=== PATIENT | female | born 1990 | race African-American/Black ===

== ENCOUNTER 2017-06-30 12:24 | Emergency (ER) | payer SELFPAY ==
--- NOTE | 2017-06-30 12:56 | RAD ---
LEFT SHOULDER THREE VIEWS: HISTORY: Left shoulder pain after injury three weeks ago. FINDINGS: There are no signs of fracture or dislocation. There is an area of lucency in the glenoid neck regio n. I am not certain if this is just projectional or if it is related to a true bone abnormality in t his region. I would recommend an axillary lateral view for assessment of this finding. IMPRESSION: Area of lucency, which is in the glenoid neck region. Not certain if this is a true bony abnormality or just a projectional finding. I would recommend an axillary lateral view if the shoulder for asse ssment. POS: [facility]
--- NOTE | 2017-06-30 15:42 | RAD ---
LEFT SHOULDER 3 VIEWS: HISTORY: Possible lucent lesion in the glenoid. COMPARISON: None. CORRELATION: Left shoulder radiograph series 06/30/17 at 12:33 p.m. FINDINGS: There is evidence of a lucent lesion with sclerotic borders in the glenoid neck. The lesion measures approximately 2.8 cm. Better interrogation with MRI should be performed on a nonemergent basis. IMPRESSION: Lucent lesion with sclerotic margin. Nonemergent MRI. POS: [facility]
== END 2017-06-30 16:40 | disposition home or self-care (01) ==
LOC: ERS 12:24
DX: M25.512 Pain in left shoulder (principal)

== ENCOUNTER 2018-11-06 16:23 | Inpatient (IN) | payer SELFPAY ==
[2018-11-06 17:24] LABS: Hemoglobin 7.7 g/dL (12.0-16.0); Mean Corpuscular HGB CONC 30.5 g/dL (32.0-36.0); Mean Corpuscular Hemoglobin 21.3 pg (27.0-31.0); Mean Corpuscular Volume 69.9 fL (78.0-98.0); Mean Platelet Volume 7.3 fL (7.4-10.4); Platelet Count 471 thou/uL (130-400); RBC Distribution Width 16.7 % (11.5-14.5); Red Blood Cell (RBC) Count 3.61 mill/uL (4.20-5.40); White Blood Cell (WBC) Count 7.3 thou/uL (4.8-10.8)
[2018-11-06 17:26] LABS: BHCG - Serum Negative (NEGATIVE); Pregs Control Background? CLEAR/WHITE (CLR/WHITE); Pregs Control Bar Appear? YES (CONTROL BAR)
[2018-11-06 17:38] LABS: Anion Gap 13 mmol/L (10-20); BUN (Urea Nitrogen) 6 mg/dL (7.0-18.7); Calc. Creatinine Clearance 0 mL/min (70-130); Calcium 9.5 mg/dL (7.8-10.44); Carbon Dioxide 23 mmol/L (22-29); Chloride 105 mmol/L (98-107); Estimated GFR-MDRD Greater than 90; Glucose 80 mg/dL (70-105); Potassium 3.1 mmol/L (3.5-5.1); Sodium 138 mmol/L (136-145)
[2018-11-06 17:48] LABS: #Eosinphils 0.1 thou/uL (0.0-0.7); #Lymphocytes 0.8 thou/uL (1.20-3.40); #Monocytes 0.4 thou/uL (0.11-0.59); #Neutrophils 6.1 thou/uL (1.40-6.50); %Basophils 0.1 % (0.0-1.0); %Eosinophils 1.5 % (0.0-10.0); %Lymphocytes 10.2 % (21.0-51.0); %Monocytes 5.3 % (0.0-10.0); %Neutrophils 82.9 % (42.0-75.0); Anisocytosis SLIGHT = 6-15 cells (100X) (0-5/hpf); Elliptocytes SLIGHT = 2-5 cells (100X) (0-1/hpf); Hypochromia SLIGHT = 6-15 cells (100X) (0-5/hpf); MDiff Complete? YES; Microcytosis SLIGHT = 6-15 cells (100X) (0-5/hpf); Platelet Morphology Comment Appears Increased
--- NOTE | 2018-11-06 19:31 | RAD ---
XR Chest 1 View Portable History: Syncope Comparison: None. Findings: Heart size is mildly enlarged. No pneumothorax. No effusion. No acute osseous abnormality. Impression: Mild cardiomegaly, abnormal for age. This may be sequelae of left to right shunt or peric ardial effusion.
[2018-11-06] MEDS ORDERED: Potassium Chloride 20 MEQ TAB ONE (22:23)
[2018-11-07 00:36] LABS: Troponin I Less than 0.010 ng/mL (< 0.028)
[2018-11-07 00:58] VITALS: BMI 33.8
[2018-11-07] MEDS ORDERED: Vancomycin HCl 1 GM in Premix Bag 1 BAG IVPB SCH (01:30)
[2018-11-07 01:52] LABS: Bilirubin Negative (Negative); Blood, Urine Negative (Negative); Clarity CLEAR (Clear); Glucose, Urine (Dipstick) Negative (Negative); Leukocyte Negative (Negative); Nitrite Negative (Negative); Protein, Urine (Dipstick) 30 mg/dL (Neg-Trace); Specific Gravity, Urine 1.024 (1.002-1.036); Urobilinogen 0.2 mg/dL (0.2-1.0)
[2018-11-07 01:55] LABS: Bacteria/HPF Rare-Few HPF (None Seen); Hyaline Casts/LPF 4-6 HYALINE CAST LPF (0-3 Hyaline); Pathc Cast-AUWi Flag 1.08 (0-2.49); WBC/HPF 0-3 HPF (0-3)
[2018-11-07] MEDS ORDERED: Ondansetron PF 4 MG/2 ML Vial IVP PRN (01:58)
[2018-11-07] MEDS ORDERED: hydrALAZINE 20 MG/ML VIAL SLOW IVP PRN (01:58)
[2018-11-07] MEDS ORDERED: Vancomycin HCl 1.5 GM in Sodium Chloride 0.9% 250 ML 300 ML IVPB SCH ×2 (02:00→04:00)
[2018-11-07] MEDS: Acetaminophen 500 MG TAB PO PRN ×2 (02:08→14:36)
[2018-11-07 02:09] LABS: Urine Culture Reflex No No
[2018-11-07] MEDS ORDERED: Potassium Chloride 20 MEQ TAB PO SCH (02:30)
[2018-11-07 04:05] LABS: #Lymphocytes 0.9 thou/uL (1.20-3.40); #Monocytes 0.4 thou/uL (0.11-0.59); #Neutrophils 5.8 thou/uL (1.40-6.50); %Basophils 0.3 % (0.0-1.0); %Eosinophils 0.5 % (0.0-10.0); %Lymphocytes 12.7 % (21.0-51.0); %Monocytes 5.6 % (0.0-10.0); Mean Corpuscular HGB CONC 31.3 g/dL (32.0-36.0); Mean Corpuscular Hemoglobin 21.8 pg (27.0-31.0); Mean Corpuscular Volume 69.5 fL (78.0-98.0); Mean Platelet Volume 7.8 fL (7.4-10.4); Platelet Count 423 thou/uL (130-400); RBC Distribution Width 16.7 % (11.5-14.5); Red Blood Cell (RBC) Count 3.22 mill/uL (4.20-5.40); White Blood Cell (WBC) Count 7.2 thou/uL (4.8-10.8)
[2018-11-07 04:09] LABS: Anion Gap 12 mmol/L (10-20); BUN (Urea Nitrogen) 6 mg/dL (7.0-18.7); Calc. Creatinine Clearance 174 mL/min (70-130); Calcium 9.3 mg/dL (7.8-10.44); Carbon Dioxide 23 mmol/L (22-29); Chloride 106 mmol/L (98-107); Estimated GFR-MDRD Greater than 90; Glucose 94 mg/dL (70-105); Iron 14 ug/dL (50-170); Potassium 3.3 mmol/L (3.5-5.1); Sodium 138 mmol/L (136-145)
[2018-11-07 04:13] LABS: Troponin I Less than 0.010 ng/mL (< 0.028)
--- NOTE | 2018-11-07 04:22 | HP ---
CHIEF COMPLAINT: Syncope. HISTORY OF PRESENT ILLNESS: The patient is a very pleasant 28-year-old female with past medical history significant for chronic anemia, who presented to the hospital after suffering a syncopal event at her place of work. 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 She states the night prior to the event, she had felt a little weak and dizzy and taken some ibuprofen. She did feel well enough to get up and go to work the next day. The patient reports just overall generalized weakness with no prodrome before her syncopal event. Her retail supervisor was next to her, and caught her on the way down. She actually drove herself to the hospital after the event, but continued to feel generally weak. The patient denies any chest pain or shortness of breath. She has no abdominal pain. Workup on arrival to the ER included an EKG, which showed normal sinus rhythm with heart rate in the 90s and was otherwise normal EKG. Her chest x-ray did show cardiomegaly; however, lung sepulveda were clear. Labs most notable for a hemoglobin of 7.7, although her baseline is unknown. Her troponin was negative. She was mildly hypokalemic at 3.1. Urinalysis negative for UTI. Just prior to her going to the floor, she did spike a fever of 102.3. REVIEW OF SYSTEMS: The patient reported to the ER doctor that she did have an episode of diarrhea the night before. She presented to the hospital today. However, on my interview, she has a negative review of systems. She denies any nausea, vomiting, or sick contacts. She has been in her usual state of health up until yesterday. ALLERGIES: NO KNOWN DRUG ALLERGIES. HOME MEDICATIONS: The patient takes no home medications. PAST MEDICAL HISTORY: Significant for chronic anemia, which she has been told is secondary to menorrhagia. SOCIAL HISTORY: She is a nonsmoker, nondrinker. She lives with her 3 children, who are 9, 8 and 6 years old. She works at [employer]. FAMILY HISTORY: No family history of early cardiac , heart problems or any blood disorders. PAST SURGICAL HISTORY: Significant for tubal ligation. OBJECTIVE: VITAL SIGNS: Blood pressure 157/86, pulse is 99, temperature 102.5, O2 saturation is 96% on room air, respirations are 20. GENERAL: The patient is a moderately obese female, resting comfortably in bed, in no acute distress. HEENT: Head atraumatic and normocephalic. Mucous membranes are moist. NECK: Supple. No lymphadenopathy. Trachea is midline. No JVD. CV: S1 and S2. Regular rate and rhythm. Soft systolic murmur, grade 1/6. LUNGS: Regular respiratory rate and pattern. Clear to auscultation bilaterally. ABDOMEN: Soft. Positive bowel sounds. Obese. Nontender. EXTREMITIES: The patient has no lower extremity pitting edema. +2 DP pulses bilaterally. SKIN: Warm and dry. NEUROLOGIC: Cranial nerves 2 through 12 are intact. The patient is nonfocal. LABORATORY DATA: White blood cell count 7.3, RBC 3.6, hemoglobin 7.7, hematocrit 25.3, platelet count is 471, neutrophils are 82.9%. Sodium 138, potassium 3.1, chloride 105, anion gap 13, BUN 6, creatinine 0.74. Troponin is negative. BNP is negative at 38.9. Glucose 80. Urinalysis negative for infection. ASSESSMENT: 1. Syncope, unknown etiology. 2. Acute febrile illness, meeting SIRS criteria at this time, unknown source of infection, the patient also appears to have a left shift. 3. Iron deficiency anemia, unknown baseline, hemoglobin is 7.7 today. 4. Hypokalemia. PLAN: At this time, we will place the patient on empiric antibiotic coverage with Zosyn and vancomycin. Blood cultures have been drawn. The patient's potassium has been repleted. Echocardiogram pending. We will recheck potassium level in the morning along with a CBC. I have ordered serum iron as well as folate and B12 levels. Dr. Griffin was called from the ER regarding this patient's syncopal event, and he did recommend echocardiogram and Cardiology consult if the echo was abnormal. Further recommendations will be based on hospital course. We will also obtain orthostatic vitals. Job ID: [id number]
[2018-11-07] MEDS ORDERED: diphenhydrAMINE 25 MG CAP PO PRN (04:32)
[2018-11-07 04:43] LABS: Folate (Folic Acid) 15.7 ng/mL (7.0-31.4)
[2018-11-07] MEDS ORDERED: methylPREDNISolone Sod Succ/PF 125 MG/2 ML VIAL IVP SCH (06:00)
[2018-11-07] MEDS ORDERED: Famotidine/PF 20 mg/2ml Vial SLOW IVP SCH (06:15)
[2018-11-07] MEDS: Piperacillin/Tazobactam 3.375 GM in Sodium Chloride 0.9% 100 ML IVPB SCH ×3 (06:46→21:00)
--- NOTE | 2018-11-07 08:50 | CT ---
PRELIMINARY REPORT/[facility]/AFTER HOURS PROCEDURE EXAM: CT Angiography Chest With Contrast EXAM DATE/TIME: 11/07/2018 6:13 AM CLINICAL HISTORY: 28 years old, female; Abnormal findings; Abnormal diagnostic tests; Elevated d-dimer; Patient HX: Elevated ddimer. No SOB or other symptoms. PT recently had allergic reaction to medication. PT has been running fever. TECHNIQUE: Imaging protocol: Axial computed tomographic angiography images of the chest with intravenous contrast using CT angiography protocol. Coronal and sagittal reformatted images were created and reviewed. 3D rendering: MIP reconstructed images were created and reviewed. COMPARISON: No relevant prior studies available. FINDINGS: Pulmonary arteries: The ascending aorta at the level of the right pulmonary artery measures 3 cm. The main pulmonary artery measures 2.8 cm. The evaluation for pulmonary embolus is nondiagnostic due to the lack of opacification of the pulmonary arteries. Aorta: Unremarkable. No aortic aneurysm. No aortic dissection. Lungs: Mild atelectasis is seen in both lung bases. Pleural space: Unremarkable. No pneumothorax. No pleural effusion. Heart: Unremarkable. No cardiomegaly. No pericardial effusion. Kidneys and ureters: A cyst measuring 2 cm is seen in the upper pole of the left kidney. Lymph nodes: Unremarkable. No enlarged lymph nodes. Bones/joints: Unremarkable. No acute fracture. Soft tissues: Unremarkable. IMPRESSION: The evaluation for pulmonary embolus is nondiagnostic due to the lack of opacification of the pulmona ry arteries. Thank you for allowing us to participate in the care of your patient. Dictated and Authenticated by: Jacque Hood MD 11/07/2018 7:45 AM Central Time ([place] & [place]) FINAL REPORT CT PULMONARY ANGIOGRAM WITH IV CONTRAST AND 3D RECONSTRUCTIONS: PROVIDED CLINICAL HISTORY: Elevated D-dimer. COMPARISON: None FINDINGS/IMPRESSION: Agree with the preliminary interpretation given by LUIS ENRIQUE. Transcribed Date/Time: 11/07/2018 9:05 AM
[2018-11-07] MEDS ORDERED: ISOVUE-370 76%-LOCM 1 ML ONE (10:39)
--- NOTE | 2018-11-07 11:23 | ULT ---
EXAM: Carotid Doppler PROVIDED CLINICAL HISTORY: Syncope COMPARISON: None FINDINGS: Grayscale and color Doppler sonography with spectral analysis was performed of the extracranial carot id system bilaterally. There is no evidence for a hemodynamically significant internal carotid artery stenosis by peak systolic velocity or ratio criteria. Antegrade flow is seen in the vertebral arteries. Calcified atherosclerotic plaque is seen within the left carotid bulb. IMPRESSION: No sonographic evidence for a hemodynamically significant internal carotid artery stenosis.
--- NOTE | 2018-11-07 12:58 | PDOC.PN ---
- Subjective Encounter Start Date: 11/07/18 Encounter Start Time: 09:00 Subjective: had fever this am -: no neck pain, moves all extrem -: no c/o cough or urinary symptoms, no chest pain/palp - Objective Resuscitation Status - Order Detail: 11/07/18 02:04 Resuscitation Status Routine Co-Sign Provider: Resuscitation Status: FULL: Full Resuscitation MAR Reviewed: Yes Vital Signs & Weight: Vital Signs (12 hours) Temp Pulse Resp BP Pulse Ox 11/07/18 11:32 99.2 F 87 12 135/65 95 11/07/18 07:42 100.4 F H 90 20 132/73 94 L 11/07/18 04:22 99.8 F H 11/07/18 03:00 101.3 F H 101 H 18 140/80 94 L Weight Weight 209 lb 11.2 oz I&O: 11/06/18 11/07/18 11/08/18 06:59 06:59 06:59 Intake Total 395 100 Output Total 300 Balance 95 100 Result Diagrams: 11/07/18 03:40 11/07/18 03:40 Phys Exam - Physical Examination HEENT: PERRLA, moist MMs Neck: no JVD, supple Respiratory: no wheezing, no rales Cardiovascular: RRR, no significant murmur Gastrointestinal: soft, non-tender, positive bowel sounds Musculoskeletal: no edema, pulses present Neurological: non-focal, moves all 4 limbs Psychiatric: normal affect, A&O x 3 Dx/Plan (1) Severe anemia Code(s): D64.9 - ANEMIA, UNSPECIFIED Status: Acute Comment: iron def, likely from menorrhagia/prior 3 childbirths, last child is 6yrs now (2) Fever Code(s): R50.9 - FEVER, UNSPECIFIED Status: Acute Qualifiers: Fever type: unspecified Qualified Code(s): R50.9 - Fever, unspecified (3) Obesity (BMI 30.0-34.9) Code(s): E66.9 - OBESITY, UNSPECIFIED Status: Chronic (4) Syncope Code(s): R55 - SYNCOPE AND COLLAPSE Status: Resolved Comment: sec to fever and anemia - Plan michael cultures are pending -: unclear source for fever, zosyn -: change status to inpt -: tx to med floor -: to amb as tolerated * . Review of Systems - Medications/Allergies Allergies/Adverse Reactions: Allergies Allergy/AdvReac Type Severity Reaction Status Date / Time vancomycin Allergy itching, Verified 11/07/18 07:47 swollen lip Medications: Current Medications Acetaminophen (Tylenol) 1,000 mg PO Q4H PRN PRN Reason: Fever > 101 Last Admin: 11/07/18 02:08 Dose: 1,000 mg Diphenhydramine HCl (Benadryl) 25 mg PO Q6H PRN PRN Reason: Itching & Insomnia Last Admin: 11/07/18 04:35 Dose: 25 mg Famotidine (Pepcid) 20 mg SLOW IVP BID [facility] Hydralazine HCl (Apresoline) 10 mg SLOW IVP Q4H PRN PRN Reason: SBP > 180 and HR < 70 Piperacillin Sod/Tazobactam (Sod 3.375 gm/ Sodium Chloride) 100 mls @ 200 mls/ hr IVPB Q8HR [facility] Last Admin: 11/07/18 06:46 Dose: 100 mls Miscellaneous Medication (Pharmacy To Dose) 1 each IVPB PRN PRN PRN Reason: RPH TO DOSE VANC Stop: 12/07/18 01:36 Ondansetron HCl (Zofran) 4 mg IVP Q6H PRN PRN Reason: Nausea/Vomiting
--- NOTE | 2018-11-07 16:35 | ULT ---
US Pelvic Complete History: Menorrhagia Comparison: None. Findings: Real-time grayscale, color, and spectral analysis of the pelvis was performed transabdomina l approach. Ovaries are normal. Adequate vascular flow. Endometrial thickness is 6 mm, normal. Uterus is normal. No mass. No fibroids. Impression: Normal exam.
[2018-11-07] MEDS: Famotidine/PF 20 mg/2ml Vial SLOW IVP SCH (21:05)
[2018-11-08] MEDS: Piperacillin/Tazobactam 3.375 GM in Sodium Chloride 0.9% 100 ML IVPB SCH ×3 (06:24→19:48)
[2018-11-08] MEDS: Famotidine/PF 20 mg/2ml Vial SLOW IVP SCH ×2 (07:49→19:47)
--- NOTE | 2018-11-08 13:53 | PDOC.PN ---
- Subjective Encounter Start Date: 11/08/18 Encounter Start Time: 07:15 Subjective: feels better, no fever -: no cough or urinary symptoms -: had diarrhea x 3 yest and it stopped, no nausea - Objective Resuscitation Status - Order Detail: 11/07/18 02:04 Resuscitation Status Routine Co-Sign Provider: Resuscitation Status: FULL: Full Resuscitation MAR Reviewed: Yes Vital Signs & Weight: Vital Signs (12 hours) Temp Pulse Resp BP Pulse Ox 11/08/18 07:16 97.9 F 73 18 131/82 97 Weight Weight 209 lb 11.2 oz I&O: 11/07/18 11/08/18 11/09/18 06:59 06:59 06:59 Intake Total 395 100 Output Total 300 Balance 95 100 Result Diagrams: 11/07/18 03:40 11/07/18 03:40 Phys Exam - Physical Examination HEENT: PERRLA, moist MMs Neck: no JVD, supple Respiratory: no wheezing, no rales Cardiovascular: RRR, no significant murmur Gastrointestinal: soft, non-tender, no distention, positive bowel sounds Musculoskeletal: no edema, pulses present Neurological: non-focal, moves all 4 limbs Psychiatric: normal affect, A&O x 3 Dx/Plan (1) Severe anemia Code(s): D64.9 - ANEMIA, UNSPECIFIED Status: Acute Comment: iron def, likely from menorrhagia/prior 3 childbirths, last child is 6yrs now (2) Fever Code(s): R50.9 - FEVER, UNSPECIFIED Status: Acute Qualifiers: Fever type: unspecified Qualified Code(s): R50.9 - Fever, unspecified (3) Obesity (BMI 30.0-34.9) Code(s): E66.9 - OBESITY, UNSPECIFIED Status: Chronic (4) Syncope Code(s): R55 - SYNCOPE AND COLLAPSE Status: Resolved Comment: sec to fever and anemia - Plan is on zosyn, is afebrile from last evening -: dc plan in am -: no source of fever, likely transiet bacteremia -: oral iron -: bld cs x2 no growth * . Review of Systems - Medications/Allergies Allergies/Adverse Reactions: Allergies Allergy/AdvReac Type Severity Reaction Status Date / Time vancomycin Allergy itching, Verified 11/07/18 07:47 swollen lip Medications: Current Medications Acetaminophen (Tylenol) 1,000 mg PO Q4H PRN PRN Reason: Fever > 101 Last Admin: 11/07/18 14:36 Dose: 1,000 mg Diphenhydramine HCl (Benadryl) 25 mg PO Q6H PRN PRN Reason: Itching & Insomnia Last Admin: 11/07/18 04:35 Dose: 25 mg Famotidine (Pepcid) 20 mg SLOW IVP BID [facility] Last Admin: 11/08/18 07:49 Dose: 20 mg Hydralazine HCl (Apresoline) 10 mg SLOW IVP Q4H PRN PRN Reason: SBP > 180 and HR < 70 Piperacillin Sod/Tazobactam (Sod 3.375 gm/ Sodium Chloride) 100 mls @ 200 mls/ hr IVPB Q8HR [facility] Last Admin: 11/08/18 06:24 Dose: 100 mls Ondansetron HCl (Zofran) 4 mg IVP Q6H PRN PRN Reason: Nausea/Vomiting
[2018-11-09] MEDS: Piperacillin/Tazobactam 3.375 GM in Sodium Chloride 0.9% 100 ML IVPB SCH (05:40)
[2018-11-09] MEDS: Famotidine/PF 20 mg/2ml Vial SLOW IVP SCH (08:56)
[2018-11-09] MEDS: Acetaminophen 500 MG TAB PO PRN (12:14)
[2018-11-09 13:15] VITALS: BP 132/85; TEMP 97.8
--- NOTE | 2018-11-09 16:20 | DIS ---
DATE OF ADMISSION: 11/06/2018 DATE OF DISCHARGE: 11/09/2018 DISCHARGE DISPOSITION: Home. PRIMARY DISCHARGE DIAGNOSES: 1. Febrile illness with unclear etiology. 2. Severe iron deficiency anemia, likely due to menorrhagia and prior deliveries. 3. Obesity. 4. Syncope due to fever and anemia, resolved. PROCEDURES DONE DURING HOSPITALIZATION: Chest x-ray done on the day of admission showed mild cardiomegaly, otherwise no acute infiltrate was seen. Carotid Doppler done showed no hemodynamically significant stenosis. CT angio chest done showed no obvious infiltrate, but due to lack of opacification of pulmonary arteries, this was nondiagnostic. Ultrasound pelvic complete done showed normal exam. No mass or fibroids were seen. Echo with 2D Doppler showed EF of 50% to 55%. No gross valvular abnormalities were seen. Blood cultures x2, no growth. H and H 7 and 22, platelet count is 423, MCV is 69. Vitamin B12 is 642, folic acid 15, procalcitonin 0.06. UA showed no evidence of infection. DISCHARGE MEDICATIONS: 1. Levaquin 500 mg p.o. daily for another 4 days. 2. Ferrous sulfate 325 mg p.o. twice daily. DISCHARGE PLAN: The patient is to follow up with primary care physician in 1 week. BRIEF COURSE DURING HOSPITALIZATION: The patient initially came in after she passed out at her workplace. On arrival, the patient had a temperature of 102.5 degrees. She also had severe iron deficiency anemia. In view of fever and her passing out with severe anemia, the patient was admitted to telemetry. She has had complete workup for fever done which have all been negative. She was gently hydrated during her stay. Her H and H remained stable. She was counseled with regard to taking ferrous sulfate twice daily for at least 3 months and to have a repeat CBC to see the progress of her hemoglobin. She needs to take Levaquin for another 4 days as she has fever of unknown origin, likely viral illness. Blood cultures were negative. CT abdomen, chest, and pelvic ultrasound have not revealed any obvious source of infection. Her urinalysis did not reveal any UTI. Echo showed normal ejection fraction with no valvular abnormalities. She has been afebrile for the last 48 hours. The patient is ambulating and eating well prior to discharge. Please note, I have seen and examined the patient on the day of discharge. Job ID: [id number]
== END 2018-11-09 13:59 | disposition home or self-care (01) | DRG 812 ==
LOC: ERS 16:23 → OBSVTOIN 21:18 → 2SW 21:18 → T4-A 11-07 13:58
PROVIDERS: ADMIT Hospitalist; ATTEND Hospitalist
DX: D50.9 Iron deficiency anemia, unspecified (principal); B34.9 Viral infection, unspecified; I51.7 Cardiomegaly; E87.6 Hypokalemia; E66.9 Obesity, unspecified; N92.0 Excessive and frequent menstruation with regular cycle; Z68.33 Body mass index [BMI] 33.0-33.9, adult
CPT/HCPCS: 36415; 71045; 71275; 76856; 80048; 81001; 82607; 82746; 83540; 83735; 83880; 84145; 84484; 84703; 85025; 85379; 87040; 93005; 93306; 93880; J2543; J2930; J3370; J3490; J7050; Q0163; Q9966; S0028

== ENCOUNTER 2020-11-11 21:44 | Emergency (ER) | payer OTHER, SELFPAY ==
[~2020-11-11 21:44] MED LIST: Iopamidol-370 76% 500 ML 1 ML ONE
[2020-11-11] MEDS ORDERED: Boostrix 0.5 ML (Tdap) VIAL ONE (21:59)
[2020-11-11] MEDS ORDERED: Fentanyl 100 MCG/2 ML VIAL ONE (23:39)
[2020-11-12 00:01] LABS: #Eosinphils 0.4 thou/uL (0.0-0.7); #Lymphocytes 2.3 thou/uL (1.20-3.40); #Monocytes 0.4 thou/uL (0.11-0.59); #Neutrophils 3.5 thou/uL (1.40-6.50); %Basophils 0.3 % (0.0-1.0); %Lymphocytes 34.7 % (21.0-51.0); %Monocytes 5.8 % (0.0-10.0); %Neutrophils 53.2 % (42.0-75.0); Hemoglobin 8.3 g/dL (12.0-16.0); Mean Corpuscular HGB CONC 31.4 g/dL (32.0-36.0); Mean Corpuscular Hemoglobin 22.7 pg (27.0-31.0); Mean Corpuscular Volume 72.3 fL (78.0-98.0); Mean Platelet Volume 7.9 fL (7.4-10.4); Platelet Count 429 thou/uL (130-400); RBC Distribution Width 17.2 % (11.5-14.5); Red Blood Cell (RBC) Count 3.65 mill/uL (4.20-5.40); White Blood Cell (WBC) Count 6.7 thou/uL (4.8-10.8)
[2020-11-12 00:06] LABS: PTT 26.3 sec (22.9-36.1); Prothrombin Time 13.3 sec (12.0-14.7)
== END 2020-11-12 01:36 | disposition home or self-care (01) ==
LOC: ERS 21:44
DX: S40.021A Contusion of right upper arm, initial encounter (principal); S70.311A Abrasion, right thigh, initial encounter; V03.99XA Pedestrian with other conveyance injured in collision with car, pick-up truck or van, unspecified whether traffic or nontraffic accident, initial encounter
CPT/HCPCS: 71045; 71260; 72170; 74177; 85025; 85610; 85730; 90471; 90715; 96374; G0390; J3010; Q9967